=== PATIENT | male | born 1980 ===

== ENCOUNTER 2018-06-11 08:41 | Emergency (ER) | payer OTHER ==
[2018-06-11 08:46] VITALS: BMI 37.5
[2018-06-11] MEDS ORDERED: Albuterol-Ipratrop 3 mg / 0.5 (3 ml) UD INH STA (09:12)
--- NOTE | 2018-06-11 09:14 | ED PDOC ---
HPI: CCC, URI, Sore Throat Time Seen by Provider: 06/11/18 08:57 Chief Complaint (Nursing): Respiratory Distress Additional History Per: Patient Additional Complaint(s): 38 y/o male with no significant PMH comes to the ER for 1 month hx of coughing and chest soreness/tightness. Patient visited at [facility] and discharged home with Steroids after an xray with URI like symptoms. Patient reports no improvement after steroids, c/ with coughing, nothing comes out with cough, denies any fever, nausea or vomiting. + sorethroat, no body aches, SOB or abdominal pain. PMH: Denies PSH: Denies Allg: NKDA FH: Denies any asthma/Eczema SH: Denies any smoking, alsohol or drug use Past Medical History Vital Signs: Last Vital Signs Temp 97.7 F 06/11/18 08:46 Pulse 69 06/11/18 08:46 Resp 17 06/11/18 08:46 BP 144/78 06/11/18 08:46 Pulse Ox 97 06/11/18 08:46 - Family History Family History: States: No Known Family Hx - Home Medications Home Medications: Ambulatory Orders Medication Instructions Recorded Albuterol HFA [Ventolin HFA 90 2 puff IH [id number] PRN #60 puff 06/11/18 mcg/actuation (8 g)] Benzonatate [Tessalon Perle] 100 mg PO TID #30 capsule 06/11/18 - Allergies Allergies/Adverse Reactions: Allergies Allergy/AdvReac Type Severity Reaction Status Date / Time No Known Allergies Allergy Verified 06/11/18 09:11 Curb-65 Severity Score - CURB-65 Severity Score Confusion: No Respiratory Rate greater than/equal to 30: No Age >64: No Curb-65 Score: 0 Percentage 30-day mortality: 0.6% Review of Systems Constitutional: Negative for: Fever, Chills, Weakness Eyes: Negative for: Pain, Vision Change ENT: Positive for: Nose Congestion, Throat Pain. Negative for: Ear Pain, Ear Discharge, Nose Pain, Nose Discharge Cardiovascular: Positive for: Other (Sore/tight chest ). Negative for: Chest Pain, Palpitations, Orthopnea Respiratory: Positive for: Cough. Negative for: Shortness of Breath, Hemoptysis Gastrointestinal: Negative for: Nausea, Vomiting, Abdominal Pain, Diarrhea Genitourinary Male: Negative for: Dysuria, Frequency Musculoskeletal: Negative for: Neck Pain, Shoulder Pain Skin: Negative for: Rash Neurological: Negative for: Weakness, Numbness Psych: Negative for: Anxiety Physical Exam - Physical Exam Appears: Positive for: No Acute Distress (Coughing ) Head Exam: Positive for: NORMAL INSPECTION Eye Exam: Positive for: Normal appearance, EOMI, PERRL ENT: Positive for: Pharynx Is (+ erythema ), Pharyngeal Erythema, Tonsillar Swelling. Negative for: Sinus Pain/Drainage, Nasal Congestion, Tonsillar Exudate Neck: Positive for: Normal, Painless ROM Cardiovascular/Chest: Positive for: Regular Rate, Rhythm. Negative for: Chest Non Tender, Edema Respiratory: Positive for: Normal Breath Sounds, Wheezing. Negative for: Dec reased Breath Sounds, Accessory Muscle Use Gastrointestinal/Abdominal: Positive for: Normal Exam, Soft. Negative for: Tenderness Back: Positive for: Normal Inspection Extremity: Positive for: Normal ROM. Negative for: Tenderness Neurological/Psych: Positive for: Awake, Alert, Normal Tone, Oriented, residential team leader II- XII - ECG O2 Sat by Pulse Oximetry: 97 - Progress ED Course And Treament: A/P: 38 y/o male with no significant PMH comes to the ER for 1 month hx of cough/WHeezing/Sorethroat - STAT DUoneb - CXR - EKG - Rapid strep - Cephacol Case discussed with Dr. Dinh Patient understands and agrees with plan CXR and EKG reviewed Strep negative Educated about supportive management for cough Patient understands and agrees with plan. Re-evaluation Time: 10:43 Condition: Improved Disposition - Clinical Impression Clinical Impression: Cough, Wheezing, URI (upper respiratory infection) - Patient ED Disposition Is Patient to be Admitted: No - Disposition Referrals: [facility] [Provider Group] Disposition: Routine/Home Disposition Time: 10:44 Condition: FAIR Additional Instructions: Encourage PO intake f/u with PMD in 2-3 days Return to ED if symptoms get worse or do not resolve in 2-3 days Prescriptions: Albuterol HFA [Ventolin HFA 90 mcg/actuation (8 g)] 2 puff IH [id number] PRN #60 puff PRN Reason: Wheezing Benzonatate [Tessalon Perle] 100 mg PO TID #30 capsule Instructions: Cough in Adults, Wheezing Forms: [facility] (Pashto) Print Language: BENGALI
[2018-06-11] MEDS ORDERED: Benzocaine/Menthol (Cepacol) Lozenge PO ONE (09:30)
[2018-06-11] MEDS ORDERED: Albuterol-Ipratrop 3 mg / 0.5 (3 ml) UD ONE (09:41)
--- NOTE | 2018-06-11 09:59 | RAD ---
Date of service: 06/11/2018 HISTORY: Cough for 1 month COMPARISON: No prior. TECHNIQUE: Chest PA and lateral views FINDINGS: LUNGS: No active pulmonary disease. PLEURA: No significant pleural effusion identified. No pneumothorax apparent. CARDIOVASCULAR: No aortic atherosclerotic calcification present. Normal cardiac size. No pulmonary vascular congestion. OSSEOUS STRUCTURES: No significant abnormalities. VISUALIZED UPPER ABDOMEN: Normal. OTHER FINDINGS: None. IMPRESSION: No active disease.
[2018-06-11 11:16] VITALS: BP 135/69; PULSE 74; RESP 18; TEMP 97.8; O2SAT 99
--- NOTE | 2018-06-11 18:38 | CARD ---
APPROVED REPORT Date of service: 06/11/2018 EKG Measurement Heart [id number] <Conclusion> Normal sinus rhythm Normal Electrocardiogram
== END 2018-06-11 11:17 | disposition home or self-care (01) ==
LOC: H.ER 08:41
DX: R05 Cough (principal); J06.9 Acute upper respiratory infection, unspecified; R06.2 Wheezing

== ENCOUNTER 2018-06-11 22:54 | Emergency (ER) | payer OTHER ==
[2018-06-11 22:55] VITALS: BMI 37.5
[2018-06-12] MEDS ORDERED: Albuterol-Ipratrop 3 mg / 0.5 (3 ml) UD INH STA ×2 (01:42→04:03)
[2018-06-12] MEDS ORDERED: Promethazine/Cod 6.25mg-10mg/5ml Syr UD PO STA (01:42)
[2018-06-12] MEDS ORDERED: Magnesium Sulfate 2 gm/50 ml 2 GM/50 ML BAG IV STA ×2 (01:42→04:03)
--- NOTE | 2018-06-12 01:51 | ED PDOC ---
HPI: Influenza Time Seen by Provider: 06/12/18 00:55 Chief Complaint: Cough, Cold, Congestion Chief Complaint (Provider): Cough, Wheeze, SOB History Per: Patient Exam Limitations: no limitations Onset/Duration Of Symptoms: Days (1) Additional complaint(s):: 38 y/o male with no significant PMHx presents to the ED for cough, wheezing, and shortness of breath for 1 day. Patient reports he has had cough and shortness of breath intermittently for about a month. He was seen in this ED and was discharged after a negative CXR and flu swab. Patient reports he has been using an metered dose inhaler some pills with no relief. Patient reports he is now feeling much worse and now is experiencing severe chest tightness, dry cough, and shortness of breath. Denies fever, chills vomiting or diarrhea. Past Medical History Reviewed: Historical Data, Nursing Documentation, Vital Signs Vital Signs: Last Vital Signs Temp 98.8 F 06/11/18 23:13 Pulse 84 06/11/18 23:13 Resp 18 06/11/18 23:13 BP 146/85 06/11/18 23:13 Pulse Ox 96 06/11/18 23:13 - Medical History PMH: No Chronic Diseases - Surgical History Surgical History: No Surg Hx - Family History Family History: States: Unknown Family Hx - Social History Current smoker - smoking cessation education provided: No Alcohol: None Drugs: Denies - Home Medications Home Medications: Ambulatory Orders Medication Instructions Recorded Albuterol HFA [Ventolin HFA 90 2 puff IH [id number] PRN #60 puff 06/11/18 mcg/actuation (8 g)] Benzonatate [Tessalon Perle] 100 mg PO TID #30 capsule 06/11/18 Methylprednisolone [Medrol Dosepak] 4 mg PO ASDIR #1 pkg 06/12/18 - Allergies Allergies/Adverse Reactions: Allergies Allergy/AdvReac Type Severity Reaction Status Date / Time No Known Allergies Allergy Verified 06/11/18 09:11 Review of Systems ROS Statement: Except As Marked, All Systems Reviewed And Found Negative Constitutional: Negative for: Fever, Chills Cardiovascular: Positive for: Chest Pain Respiratory: Positive for: Cough, Shortness of Breath, Wheezing Gastrointestinal: Negative for: Vomiting, Diarrhea Physical Exam - Reviewed Nursing Documentation Reviewed: Yes Vital Signs Reviewed: Yes - Physical Exam Appears: Positive for: Uncomfortable Head Exam: Positive for: ATRAUMATIC, NORMAL INSPECTION, NORMOCEPHALIC Skin: Positive for: Normal Color, Warm, DRY Eye Exam: Positive for: EOMI, Normal appearance, PERRL ENT: Positive for: Normal ENT Inspection Neck: Positive for: Normal, Painless ROM Cardiovascular/Chest: Positive for: Regular Rate, Rhythm. Negative for: Murmur Respiratory: Positive for: Decreased Breath Sounds, Rhonchi (bilateral inspiratory), Wheezing (diffuse bilateral expiratory) Gastrointestinal/Abdominal: Positive for: Normal Exam, Soft. Negative for: Tenderness Back: Positive for: Normal Inspection Extremity: Positive for: Normal ROM. Negative for: Pedal Edema, Deformity Neurological/Psych: Positive for: Awake, Alert, Normal Tone. Negative for: Motor/Sensory Deficits Medical Decision Making Medical Decision Making: Time: 01:42 Impression: 38 y/o with respirtoary distress in setting of acute bronchitis. Patient deferred CXR due to patient having one in the morning. Initial Plan: * Labs * Duonebs * Magnesium Sulfate * Promethazine/Codeine * Solumedrol 04:00 Labs reviewed no clinically significant abnormalities. Patient reports improvement of symptoms however patient still has persistent wheezing will order more Magnesium Sulfate and duonebs. 05:25 Patient reports marked improvement of symptoms after additional treatment with Magnesium sulfate and Duonebs. Patient is stable for discharge home. Diagnosis is bronchitis. Scribe Attestation: Documented by Gino Atkins, acting as a scribe Jovi Hassan MD Provider Scribe Attestation: All medical record entries made by the Scribe were at my direction and personally dictated by me. I have reviewed the chart and agree that the record accurately reflects my personal performance of the history, physical exam, medical decision making, and the department course for this patient. I have also personally directed, reviewed, and agree with the discharge instructions and disposition - Laboratory Results Result Diagrams: 06/12/18 02:12 06/12/18 02:12 - ECG O2 Sat by Pulse Oximetry: 96 (RA) Pulse Ox Interpretation: Normal - Critical Care Total Time (In Min): 30 Documented Critical Care: Time excludes all time spent performint seperately billable procedures Disposition - Clinical Impression Clinical Impression: Bronchitis - Disposition Referrals: [facility] [Outside] FAMILY PROVIDER,NO [Primary Care Provider] - Disposition: Routine/Home Disposition Time: 05:25 Condition: STABLE Additional Instructions: MADONNA CAMPOS, thank you for letting us take care of you today. Your provider was Charan Hassan MD and you were treated for COUGH,CONGESTION. The emergency medical care you received today was directed at your acute symptoms. If you were prescribed any medication, please fill it and take as directed. It may take several days for your symptoms to resolve. Return to the Emergency Department if your symptoms worsen, do not improve, or if you have any other problems. Please contact your doctor or call one of the physicians/clinics you have been referred to that are listed on the Patient Visit Information form that is included in your discharge packet. Bring any paperwork you were given at discharge with you along with any medications you are taking to your follow up visit. Our treatment cannot replace ongoing medical care by a primary care pr ovider outside of the emergency department. Thank you for allowing the [facility] team to be part of your care today. If you had an X-Ray or CT scan: A Radiologist will review the ED reading if any change in treatment is needed we will contact you. If you had a blood, urine, or wound culture: It will take several days for the results, if any change in treatment is needed we will contact you. If you had an STI test: It will take 48 hours for the results. Please call after 1 week if you have not heard back. Prescriptions: Methylprednisolone [Medrol Dosepak] 4 mg PO ASDIR #1 pkg Instructions: Acute Bronchitis Forms: [employer] (French) Print Language: IRAQI
[2018-06-12] MEDS ORDERED: Magnesium Sulfate 2 gm/50 ml 2 GM/50 ML BAG ONE ×2 (01:56→04:17)
[2018-06-12] MEDS ORDERED: Albuterol-Ipratrop 3 mg / 0.5 (3 ml) UD ONE ×2 (01:57→04:05)
[2018-06-12 02:15] LABS: BASO # 0.1 K/uL (0.0-0.2); BASO % 0.7 % (0.0-2.0); EOS # 0.6 K/uL (0.0-0.7); EOS % 5.9 % (0.0-4.0); HEMOGLOBIN 13.7 g/dL (12.0-18.0); LYMPH # 2.8 K/uL (1.0-4.3); LYMPH % 26.4 % (20.0-40.0); MEAN CELL VOLUME 87.5 fl (80.0-94.0); MEAN CORPUSCULAR HEMOGLOBIN 29.4 pg (27.0-31.0); MEAN CORPUSCULAR HGB CONC 33.6 g/dL (33.0-37.0); MEAN PLATELET VOLUME 7.7 fl (7.2-11.7); MONO # 0.8 K/uL (0.0-0.8); MONO % 7.2 % (0.0-10.0); NEUT # 6.4 K/uL (1.8-7.0); NEUT % 59.8 % (50.0-75.0); NRBC % 0.8 % (0.0-0.0); RBC 4.67 Mil/uL (4.40-5.90); RED CELL DISTRIBUTION WIDTH 13.5 % (11.5-14.5); WHITE BLOOD COUNT 10.7 K/uL (4.8-10.8)
[2018-06-12 02:32] LABS: ALB/GLOB RATIO 1.3 (1.0-2.1); ALBUMIN 4.2 g/dL (3.5-5.0); ALT/SGPT 39 U/L (21-72); AST/SGOT 28 U/L (17-59); BLOOD UREA NITROGEN 15 mg/dl (9-20); CALCIUM 9.5 mg/dL (8.4-10.2); GFR NON-AFRICAN AMERICAN > 60
[2018-06-12 05:36] VITALS: BP 140/82; PULSE 82; RESP 16; TEMP 98.1; O2SAT 98
== END 2018-06-12 05:35 | disposition home or self-care (01) ==
LOC: H.ER 22:54
DX: J20.9 Acute bronchitis, unspecified (principal)
CPT/HCPCS: 80053; 83605; 85025; 87040; 96365; 96366; 96375; 99283; J2930